=== PATIENT | male | born 1950 | race Two or more races ===

== ENCOUNTER → 2024-04-26 | Outpatient (CLI) | payer OTHER, SELFPAY ==
--- NOTE | 2024-04-26 09:24 | EKG_ITS ---
[facility] Test Date: 2024-04-26 Pat Name: IRMA QUEVEDO Department: Room: - Gender: Male Dietary Aid: RT DOMITILANT : 1950 Requested By: Rocky Kingston (PCP) Order Number: [id number] Reading MD: Rocky Kingston (PCP) Measurements Intervals [place] Rate: 72 P: 57 WV: 137 QRS: 33 QRSD: 72 T: 50 QT: 383 QTc: 422 Interpretive Statements SINUS RHYTHM No previous ECG available for comparison /store/S0/[id number]
[2024-04-26 09:39] LABS: Basophils % (Auto) 1 % (0-2.5); Eosinophils # (Auto) 0.1 Thou/mm3 (0.0-0.5); Eosinophils % (Auto) 2 % (0-10); Hematocrit 46.7 % (41.0-53.0); Hemoglobin 15.4 g/dL (13.5-16.0); Immature Granulocytes % (Auto) 1 % (0-0); Immature Granulocytes Auto 0.06 Thou/mm3 (0.00-0.00); Lymphocytes # (Auto) 1.9 Thou/mm3 (1.0-4.8); Lymphocytes % (Auto) 32 % (10-50); Mean Corpuscular Hemoglobin 29.3 pg (25.0-35.0); Mean Corpuscular Volume 89 fL (80-100); Monocytes # (Auto) 0.5 Thou/mm3 (0.0-0.8); Monocytes % (Auto) 8 % (0-12); Neutrophils # (Auto) 3.4 Thou/mm3 (1.8-7.7); Neutrophils % (Auto) 57 % (37-80); Nucleated Red Blood Cell % 0 /100 WBC (0); Platelet Count 173 Thou/mm3 (140-440); RDW Standard Deviation 47.6 fL (35.1-43.9); Red Blood Count 5.25 Miln/mm3 (4.50-5.90)
[2024-04-26 10:00] LABS: Alanine Aminotransferase 28 U/L (10-49); Alkaline Phosphatase 66 U/L (46-116); Anion Gap 10 (7-16); Aspartate Amino Transferase 19 U/L (0-34); Calcium 9.5 mg/dL (8.3-10.6); Calcium (Corrected) 9.5 mg/dL (8.5-10.1); Carbon Dioxide 27.2 mMol/L (20.0-31.0); Chloride 104 mMol/L (98-107); Creatinine (Component) 0.6 mg/dL (0.6-1.3); Glucose 160 mg/dL (74-106); Potassium 3.8 mMol/L (3.4-5.1); Sodium 141 mMol/L (136-145); eGFR > 60 See Note
[2024-04-26 10:21] LABS: Albumin/Globulin Ratio 1.7 (1.2-2.2); BUN/Creatinine Ratio 30 Ratio (12-20); Blood Urea Nitrogen 18 mg/dL (9-23); Globulin 2.3 gm/dL (2.3-3.5); Osmolality,Calculated 286 (275-295); Total Protein 6.3 gm/dL (5.7-8.2)
[2024-04-26 14:47] LABS: Glucose Estimated Average 243 mg/dL (80-131); Hemoglobin A1C 10.1 % Hgb (4.8-6.0)
[2024-04-26 15:03] LABS: Prostate Specific Antigen 2.81 ng/mL (0-4.00)
[2024-04-26 15:04] LABS: Cardiac Risk Estimate 3.3 RATIO (4.0-6.7); Cholesterol 167 mg/dL (132-200); HDL Cholesterol 50 mg/dL (40-60); LDL Cholesterol,Calculated 87 mg/dL (0-130); Triglycerides 148 mg/dL (30-150)
[2024-04-26 15:06] LABS: Vitamin D 25 Hydroxy Total 26.7 ng/mL (7.3-40.2)
== END | disposition home or self-care (01) ==
PROVIDERS: PCP Family Medicine; Referring Provider Family Medicine; Visit Provider Family Medicine
DX: Z00.00 Encounter for general adult medical examination without abnormal findings (principal); Z13.0 Encounter for screening for diseases of the blood and blood-forming organs and certain disorders involving the immune mechanism; Z13.29 Encounter for screening for other suspected endocrine disorder; Z13.21 Encounter for screening for nutritional disorder; Z13.220 Encounter for screening for lipoid disorders; Z12.11 Encounter for screening for malignant neoplasm of colon; R10.9 Unspecified abdominal pain; R14.3 Flatulence; R07.9 Chest pain, unspecified; R00.2 Palpitations
CPT/HCPCS: 36415; 80053; 80061; 81001; 82043; 82306; 82570; 83036; 84153; 84443; 85025; 93005

== ENCOUNTER → 2024-06-15 | Outpatient (CLI) | payer OTHER, SELFPAY | END | disposition home or self-care (01) | LOC: COPL 11:52 | PROVIDERS: PCP Family Medicine; Referring Provider Family Medicine; Visit Provider Family Medicine | DX: R10.9 Unspecified abdominal pain (principal) | CPT/HCPCS: 87338 ==

== ENCOUNTER 2024-11-04 16:37 | Emergency (ER) | payer OTHER, SELFPAY ==
[2024-11-04 16:40] VITALS: BMI 22.8
[2024-11-04 16:55] VITALS: BP 100/46; PULSE 84; RESP 17; TEMP 37.1; O2SAT 98
--- NOTE | 2024-11-04 17:01 | XR_ITS ---
Examination: PA lateral chest 2 views Technique: Upright PA lateral chest 2 views Date and time: November 04, 2024, 1723 hrs. Comparison: April 03, 2020 Indications: Onset chest pain today. Findings: Normal heart size Mild vascular congestion. No lobar pneumonia or pulmonary edema Impression: Mild vascular congestion
--- NOTE | 2024-11-04 17:01 | EKG_ITS ---
[facility] Test Date: 2024-11-04 Pat Name: IRMA QUEVEDO Department: Room: - Gender: Male [employer] Farm[employer]: : 1950 Requested By: Tere Patiño Order Number: [id number] Reading MD: Tere Patiño Measurements Intervals [place] Rate: 75 P: 56 OR: 134 QRS: 43 QRSD: 82 T: 61 QT: 378 QTc: 424 Interpretive Statements SINUS RHYTHM Compared to ECG 04/26/2024 09:27:43 No significant changes /store/S0/[id number].pdf
--- NOTE | 2024-11-04 17:02 | PD.EDRME ---
Rapid Medical Screening Exam RME Arrival date/time: 11/04/24 16:37 Chief Complaint: Urogenital-Male Time Seen by Provider: 11/04/24 16:58 Vital signs: Vital Signs Temperature 98.7 F 11/04/24 16:55 Pulse Rate 84 11/04/24 16:55 Respiratory Rate 17 11/04/24 16:55 Blood Pressure 100/46 L 11/04/24 16:55 Pulse Oximetry (%) 98 11/04/24 16:55 Oxygen Delivery Method Room Air 11/04/24 16:55 Vital signs reviewed by provider: Yes RME Narrative: 74-year-old male with past medical history of diabetes and prostate problems (on prostate medications) presents to the Emergency Department with very yellow urine today. He reports chest pain radiating to the back 3 days ago for which he went to a clinic, but no interventions were performed and he has not had pain since then. Today he noticed his urine is really yellow . He also has suprapubic discomfort. He denies hematuria, diarrhea, or other acute symptoms. No known allergies. Orders made and another provider to follow up care.
[2024-11-04 17:25] LABS: Collection Type, Urine Clean Catch
[2024-11-04 17:27] LABS: Basophils # (Auto) 0.0 Thou/mm3 (0.0-0.2); Basophils % (Auto) 0 % (0-2.5); Eosinophils # (Auto) 0.0 Thou/mm3 (0.0-0.5); Eosinophils % (Auto) 0 % (0-10); Hematocrit 43.3 % (41.0-53.0); Hemoglobin 14.2 g/dL (13.5-16.0); Immature Granulocytes Auto 0.02 Thou/mm3 (0.00-0.00); Lymphocytes # (Auto) 0.6 Thou/mm3 (1.0-4.8); Lymphocytes % (Auto) 10 % (10-50); Mean Corpuscular HGB Conc 32.8 g/dl (31.0-37.0); Mean Corpuscular Hemoglobin 28.2 pg (25.0-35.0); Mean Corpuscular Volume 86 fL (80-100); Monocytes # (Auto) 0.5 Thou/mm3 (0.0-0.8); Monocytes % (Auto) 9 % (0-12); Neutrophils # (Auto) 4.9 Thou/mm3 (1.8-7.7); Neutrophils % (Auto) 81 % (37-80); Nucleated Red Blood Cell # 0.00 Thou/mm3 (0.00-0.00); Nucleated Red Blood Cell % 0 /100 WBC (0); Platelet Count 153 Thou/mm3 (140-440); RDW Standard Deviation 49.6 fL (35.1-43.9); Red Blood Count 5.03 Miln/mm3 (4.50-5.90); White Blood Count 6.1 Thou/mm3 (3.8-10.6)
[2024-11-04 17:48] LABS: Bilirubin,Urine 3+ (Negative); Blood,Urine Trace (Negative); Clarity,Urine Clear (Clear/Hazy); Color,Urine Drk-Yellow (Lt Yel-Yel); Culture Indicated,Urine Not Indicated; Glucose, Urine 3+ (Negative); Ketones,Urine 1+ (Negative); Leukocyte Esterase,Urine Negative (Negative); Nitrite,Urine Negative (Negative); PH,Urine 6.0 (5.0-7.0); Protein,Urine 1+ (Neg - Trace); RBC,Urine 5 /hpf (0-3); Specific Gravity,Urine 1.035 (1.001-1.035); Squamous Epithelial Cell,Urine < 1 /hpf (0-5); Urobilinogen,Urine 4.0 mg/dL (0.0-1.0); WBC,Urine 4 /hpf (0-5)
[2024-11-04 17:51] LABS: Alanine Aminotransferase 306 U/L (10-49); Albumin, Serum 4.3 gm/dL (3.4-4.8); Albumin/Globulin Ratio 1.6 (1.2-2.2); Alkaline Phosphatase 230 U/L (46-116); Anion Gap 9 (7-16); Aspartate Amino Transferase 253 U/L (0-34); BUN/Creatinine Ratio 27 Ratio (12-20); Bilirubin,Total 5.0 mg/dL (0.3-1.2); Blood Urea Nitrogen 16 mg/dL (9-23); Calcium 9.7 mg/dL (8.3-10.6); Calcium (Corrected) 9.7 mg/dL (8.5-10.1); Carbon Dioxide 24.0 mMol/L (20.0-31.0); Chloride 106 mMol/L (98-107); Creatinine (Component) 0.6 mg/dL (0.6-1.3); Estimated Creatinine Clearance 107.1 mL/min (>60); Globulin 2.7 gm/dL (2.3-3.5); Glucose 178 mg/dL (74-106); Osmolality,Calculated 282 (275-295); Potassium 3.8 mMol/L (3.4-5.1); Sodium 139 mMol/L (136-145); Total Protein 7.0 gm/dL (5.7-8.2); Troponin I < 0.002 ng/mL (0.0-0.045); eGFR > 60 See Note
--- NOTE | 2024-11-04 18:16 | XR_ITS ---
Examination: Abdomen sonogram, Limited Date and time of exam: November 04, 2024, 2049 hrs. Indications: Abdominal pain beginning 3 days ago Technique: Grayscale sonographic images abdomen Findings: 12 mm sludge ball Gallbladder wall is thickened 0.7 cm Common bile duct 0.3 cm Pancreatic head 3.7 cm Liver 17.5 cm smooth contour Normal hepatopedal portal venous oh Patent IVC Impression: 12 mm sludge ball Acute acalculous cholecystitis, consider HIDA scan or MRCP follow-up
--- NOTE | 2024-11-04 18:20 | EDNOTE_ITS ---
ED Abdominal Pain RME/HPI General Chief Complaint: Urogenital-Male Stated complaint: I HAVE A URINE INFECTION Time seen by provider: 11/04/24 16:58 Arrival date/time: 11/04/24 16:37 RME / HPI RME / HPI narrative: 74-year-old male with past medical history of diabetes and prostate problems (on prostate medications) presents to the Emergency Department with very yellow urine today. He reports chest pain radiating to the back 3 days ago for which he went to a clinic, but no interventions were performed and he has not had pain since then. Today he noticed his urine is really yellow . He also has suprapubic discomfort. He denies hematuria, diarrhea, or other acute symptoms. No known allergies. Orders made and another provider to follow up care. 74-year-old male with past medical history of diabetes mellitus and BPH who presented to [facility] emergency department with a chief complaint of mild anterior chest pain, back pain and yellow urine. Patient reported that his symptoms started 3 to 5 days ago and they have not improved with [id number] medication reports taking ibuprofen up to 4 times a day. He otherwise denies any recent weight loss, decreased appetite, fevers chills myalgias palpitations or headache. Related Data Allergies Allergy/AdvReac Type Severity Reaction Status Date / Time No Known Allergies Allergy Verified 11/04/24 16:45 Review of Systems Review of Systems Systems Reviewed: All systems reviewed, normal except as documented Past Medical History Social History SMOKING STATUS: Never smoker SUBSTANCE USE: does not use ALCOHOL: Never HOUSING: House LIVES WITH: Family Travel History EBOLA RISK: No ED Exam Narrative Physical exam: Physical Exam General: Awake and in no acute distress. Conversational and non-toxic appearing. HEENT: Normocephalic, atraumatic, mucous membranes moist. Scleral icterus noted. Heart: Regular rate and rhythm, no murmurs. Lungs: Clear to auscultation with no wheezing or crackles. Abdomen: Soft, nondistended, nontender, positive bowel sounds. ?No guarding or rebound tenderness. Neurologic: Alert and oriented x3, no gross neurological deficit, and patient able to move all 4 extremities. Extremities: No edema. No asterixis. Skin: No rash or ecchymoses. Jaundiced yellow skin. Course Quality Measures none Orders Category Date Time Status CT Screening NOW Care 11/04/24 18:33 Active EKG (ED ONLY) *Do not use* NOW Care 11/04/24 17:01 Completed MRI Screening NOW Care 11/04/24 21:28 Active NPO after Midnight ONCE Care 11/04/24 21:27 Active Diet NPO after Midnight Diet 11/05/24 00:01 Active Diet Regular Diet 11/04/[address] abdomen pelvis w con Stat Exams 11/04/24 18:33 Completed CXR2 [XR chest 2V] Stat Exams 11/04/24 17:01 Completed EKG (ED Only) Stat Exams 11/04/24 17:01 Draft MR MRCP Stat Exams 11/05/24 Ordered US liver Stat Exams 11/04/24 18:16 Completed Acetaminophen Stat Lab 11/04/24 17:11 Completed Alcohol, Blood Medical Stat Lab 11/04/24 17:11 Completed Bilirubin,Direct AM DRAW Lab 11/05/24 04:43 Completed Bilirubin,Direct Stat Lab 11/04/24 17:11 Completed Blood Culture (Lab) Stat Lab 11/04/24 21:25 Received CBC AM DRAW Lab 11/05/24 04:43 Completed CBC Stat Lab 11/04/24 17:11 Completed CMP [Comprehensive Metabolic Panel] AM DRAW Lab 11/05/24 04:43 Completed CMP [Comprehensive Metabolic Panel] Stat Lab 11/04/24 17:11 Completed Drug Screen,Urine Stat Lab 11/04/24 17:21 Completed Ferritin Stat Lab 11/04/24 17:11 Completed Hepatitis Acute Panel Stat Lab 11/04/24 17:11 Results INR [Prothrombin Time with INR] Stat Lab 11/04/24 17:11 Completed Iron Panel Stat Lab 11/04/24 17:11 Completed Magnesium AM DRAW Lab 11/05/24 04:43 Completed PTT [Partial Thromboplastin Time] Stat Lab 11/04/24 17:11 Completed Troponin I Stat Lab 11/04/24 17:11 Completed UA, C/S IF [Urinalysis, C/S if Indicated] Stat Lab 11/04/24 17:21 Completed Piper/Tazo Inj [Zosyn Inj] 4.5 gm Med 11/04/24 21:33 Pending Sodium Chloride 0.9% (Pop) [NS 0.9% mini bag] 100 ml IV Q6HR Piper/Tazo Inj [Zosyn Inj] 4.5 gm Med 11/04/24 21:45 Discontinued Sodium Chloride 0.9% (Pop) [NS 0.9% mini bag] 100 ml IV X1 Late Tray Request Routine Oth 11/04/24 21:26 Active Vital Signs Vital signs: Vital Signs Temperature 98.7 F 11/04/24 16:55 Pulse Rate 84 11/04/24 16:55 Respiratory Rate 17 11/04/24 16:55 Blood Pressure 100/46 L 11/04/24 16:55 Pulse Oximetry (%) 98 11/04/24 16:55 Oxygen Delivery Method Room Air 11/04/24 16:55 Abdominal Pain MDM MDM Narrative MDM Narrative:: #Hyperbilirubinemia #Transaminitis #Gallbladder sludge 74-year-old male with past medical history of diabetes and BPH scented to ED for back pain and chest pain and yellowing of urine. Workup: EKG shows sinus rhythm Rate 75, QTc 424 CBC: WBC 6.1, hemoglobin 14.0, platelet 153 Coags: PT 10.9 INR 1.0 APTT 24.7 Chemistry: Sodium 139 potassium 3.8 chloride 106 bicarb 24.0 anion gap 9 BUN 16 creatinine 0.6, GFR greater than 60 glucose 178 osmolality 282 corrected calcium 9.7 iron 53 TIBC 325 iron saturation 16, iron sat iron binding 272 ferritin 284 total bilirubin 5.0, direct bilirubin 3.7, AST 253 ALT 306 alk phos 230 troponin less than 0.002, total protein 7, albumin 4.3, globulin 2.7 Urine analysis: Urine color dark yellow, pH 6.0, specific gravity 1.035, protein 1+, glucose 3+, ketones 1+, trace blood, nitrite negative, bilirubin 3+, urobilinogen 4.0, leukocyte esterase negative, RBC 5, WBC 4, squamous epithelial cell less than 1, no bacteria Urine drug screen negative, Tylenol level 3.4, it blood alcohol level negative, Hepatitis panel shows hep A IgM antibody negative, hep Bs antigen nonreactive, hep B core IgM antibody nonreactive, hep C antibody pending Liver ultrasound obtained shows 12 mm sludge ball, acute acalculous cholecystitis, CT abdomen pelvis shows gallbladder wall thickened, no renal or ureteral calculi and no hydronephrosis, normal appendix Marked prostatomegaly thickening of urinary bladder wall Patient will be started on Zosyn every 6 hours prophylactically, labs ordered for a.m. Patient will need MRCP, MRCP ordered. MRCP will be available in a.m. Patient will be signed off to a.m. ED physician Dr. Mcdonald Case discussed with Attending Physician Dr. Cherie August MD Internal Medicine PGY-2 Disclaimer: This note was dictated by speech recognition. Minor errors in document processing specialist may be present due to voice recognition software. Patient data External records reviewed:: [facility] previous records Clinical information provided by:: patient Social determinants that could affect healthcare access:: none Patient has the following chronic illnesses:: As above How is presenting disease/condition affected by chronic disease/condition?: uneffected by Evaluation data The following diagnostics were reviewed and interpreted by me:: lab results, radiology exam(s) and EKG tracing(s) Lab and/or radiology exams considered but not ordered:: None Interpretation Summary: EKG shows sinus rhythm Rate 75, QTc 424 CBC: WBC 6.1, hemoglobin 14.0, platelet 153 Coags: PT 10.9 INR 1.0 APTT 24.7 Chemistry: Sodium 139 potassium 3.8 chloride 106 bicarb 24.0 anion gap 9 BUN 16 creatinine 0.6, GFR greater than 60 glucose 178 osmolality 282 corrected calcium 9.7 iron 53 TIBC 325 iron saturation 16, iron sat iron binding 272 ferritin 284 total bilirubin 5.0, direct bilirubin 3.7, AST 253 ALT 306 alk phos 230 troponin less than 0.002, total protein 7, albumin 4.3, globulin 2.7 Urine analysis: Urine color dark yellow, pH 6.0, specific gravity 1.035, protein 1+, glucose 3+, ketones 1+, trace blood, nitrite negative, bilirubin 3+, urobilinogen 4.0, leukocyte esterase negative, RBC 5, WBC 4, squamous epithelial cell less than 1, no bacteria Urine drug screen negative, Tylenol level 3.4, it blood alcohol level negative, Hepatitis panel shows hep A IgM antibody negative, hep Bs antigen nonreactive, hep B core IgM antibody nonreactive, hep C antibody pending Liver ultrasound obtained shows 12 mm sludge ball, acute acalculous cholecystitis, CT abdomen pelvis shows gallbladder wall thickened, no renal or ureteral calculi and no hydronephrosis, normal appendix Marked prostatomegaly thickening of urinary bladder Medications / Prescriptions Medications or Prescriptions considered but not ordered:: None Medication administrations:: Medication Administration History Piperacillin Sod/Tazobactam (Sod 4.5 gm/ Sodium Chloride) 100 mls @ 200 mls/hr IV Q6HR GUILLERMINA; Protocol Stop: 11/11/24 21:32 Discontinued Medications Piperacillin Sod/Tazobactam (Sod 4.5 gm/ Sodium Chloride) 100 mls @ 200 mls/hr IV X1 ONE; Protocol Stop: 11/04/24 22:14 Last Infusion: 11/04/24 22:40 Dose: Infused Documented By: Admin: 11/04/24 21:43 Dose: 200 mls/hr Documented By: YOKO As Above Consultations Consultation(s) initiated? (list below): No Diagnosis Differential diagnosis abdominal pain: abdominal pain, constipation, small bowel obstruction and other Most likely diagnosis given after review of the tests above:: Biliary etiology Admission Indicated Admission indicated?: not indicated Admission Request Was there a request for admission?: No Disposition Plan Disposition Plan: other (specify) (Signed off to Dr Mcdonald) Discharge Plan Prescriptions/Referrals Referrals: Thee (PCP)Rocky MD [Primary Care Provider, [facility]] - In 1 week Problem List Clinical Impression: Hyperbilirubinemia Patient/Caregiver Discharge Instructions Additional Instructions: Discharge Instructions from Dr. August: 1. After evaluation, your symptoms are due to gallstone(s).? You need gallbladder to help digest fatty foods. 2. So to prevent future attacks, avoid all fatty and oily and greasy and buttery and dairy foods.? This usually means take out and fast food restaurants. 3. Zofran for nausea/vomiting.? Tylenol with codeine for severe pain.? Clear liquid diet for 24 hours then advance diet slowly as tolerated. 4. See a private doctor on 11/05/2024 for recheck and further care. Ask to review all test results and official radiology reports, to make sure you receive all necessary follow-ups and monitoring. Ask for help seeing a general surgeon to discuss elective surgery, to prevent these painful attacks. 5. Seek immediate medical care with intolerable pain, fever, or with any concerns. Instrucciones de gilma del Dr. August: 1. Despu?s de la evaluaci?n, choco s?ntomas se deben a c?lculos biliares. Necesita la ves?cula biliar para digerir los alimentos grasos. 2. Para prevenir futuros ataques, evite todos los alimentos grasosos, aceitosos, grasosos, con mantequilla y l?cteos. [place] generalmente implica comida para llevar y restaurantes de comida r?pida. 3. Zofran para n?useas y v?mitos. Tylenol con code?na para el dolor intenso. Dieta l?quida jan 24 horas y luego aumente la dieta gradualmente seg?n la tolerancia. 4. Consulte con un m?dico privado el 05/11/2024 para david revisi?n y atenci?n adicional. Solicite la revisi?n de todos los resultados de las pruebas y los informes radiol?gicos oficiales para asegurarse de recibir todos los seguimientos y la monitorizaci?n necesarios. Solicite ayuda con un cirujano general para hablar sobre david cirug?a electiva y prevenir estos dolorosos ataques. 5. Busque atenci?n m?dica inmediata si presenta dolor insoportable, fiebre o cualquier inquietud. Print Language: Portuguese
--- NOTE | 2024-11-04 18:33 | XR_ITS ---
Examination: CT abdomen with intravenous contrast CT pelvis with intravenous contrast 2-D coronal reconstructions 2-D sagittal reconstructions Date and time of exam:November 04, 2024, 2009 hrs. Indications: Lower abdominal pain with dark-colored urine today, hyperbilirubinemia elevated transaminase on laboratory examination today. CTDI: vol (mGy) 6.11 DLP: (mGycm) 371 Technique: Multiple axial sections of the abdomen and pelvis have been obtained. 64 slice high-resolution scanner used. 3 mm axial sections have been obtained, post intravenous injection 60 cc [id number] 2-D sagittal, coronal reconstructions obtained. Low dose protocols were performed. One or more of the following dose reduction techniques were used; automated exposure control, adjustment of the mA and/or KV according to patient size, use of iterative reconstruction technique. Findings: No focal liver or splenic lesion Gallbladder wall appears thickened No extra hepatic biliary tract dilatation no pancreatic mass No renal or ureteral calculi, no hydronephrosis Aorta normal size Normal appendix No bowel obstruction Marked prostatomegaly transverse dimension 6.7 cm with thickening of urinary bladder wall Fat-containing inguinal hernias Prominent osteopenia Impression: Gallbladder wall appears thickened, recommend hepatobiliary sonography follow-up No renal or ureteral calculi, no hydronephrosis Normal appendix Marked prostatomegaly, thickening of urinary bladder wall, consider urinary tract outflow obstruction secondary to the prostatomegaly, cystitis, clinical correlation advised
[2024-11-04 18:45] LABS: INR 1.0 (0.9-1.3); Partial Thromboplastin Time 24.7 Seconds (22.0-36.0); Prothrombin Time 10.9 Seconds (9.0-12.2)
[2024-11-04 18:50] LABS: Alcohol, Blood Medical < 3.0 mg/dL (0-10.0); Bilirubin,Direct 3.7 mg/dL (0.0-0.3)
[2024-11-04 19:03] LABS: Acetaminophen 3.4 mcg/mL (10.0-20.0)
[2024-11-04 19:41] LABS: Amphetamine/Methamp Scrn,U Negative (Negative); Barbiturate Screen,Urine Negative (Negative); Benzodiazepines Screen,Urine Negative (Negative); Benzoylecgonine Screen, Ur Negative (Negative); Fentanyl Screen,Urine Negative (Negative); Opiate Screen,Urine Negative (Negative); THC Screen,Urine Negative (Negative)
[2024-11-04 19:44] VITALS: BP 145/76; PULSE 63; RESP 18; TEMP 36.5; O2SAT 98
[2024-11-04 20:32] LABS: Ferritin 284 ng/mL (10.5-307.3); Iron 53 mcg/dL (65-175); Percent Iron Saturation 16 % (20-55); Total Iron Binding Capacity 325 mcg/dL (250-425); Unsaturated Iron Binding 272 (225-295)
--- NOTE | 2024-11-04 20:48 | PC.NURSE ---
Pt taken to ultrasound via wheelchair
[2024-11-04 21:31] LABS: Hepatitis A Antibody IgM Non Reactive (Non React); Hepatitis B Core Antibody IgM Non Reactive (Non React); Hepatitis B Surface Antigen Non Reactive (Non React)
[2024-11-04] MEDS: PIPER/TAZO INJ 4.5 GM in SODIUM CHLORIDE 0.9% (POP) 100 ML IV (21:43)
[2024-11-05] VITALS: BP 137/70; PULSE 54; RESP 19; TEMP 36.7; O2SAT 98
--- NOTE | 2024-11-05 | XR_ITS ---
MRI abdomen, without contrast. MRCP Date and time of exam: November 05, 2024 0856 hours INDICATIONS: Yellow urine today, epigastric pain radiating to the back beginning 3 days ago, 12 mm sludge ball, gallbladder wall is thickened 0.7 cm Hepatobiliary sonography 11/04/2024 2051 hours Technique: Multiple axial and coronal images of the abdomen have been obtained with the Siemens 1.5T MRI scanner. Images obtained included T1 weighted transverse images, T2-weighted transverse images, T2-weighted transverse images fat-suppressed, T2 weighted haste fat suppressed transverse images, T1 weighted images, in and out of phase images, T2-weighted coronal images, breath hold, T2 weighted haze coronal images as well as T2 weighted coronal thick slab images, MRCP. Findings: No intrahepatic biliary tract dilatation Gallbladder sludge versus stones No convincing gallbladder wall thickening Normal common hepatic common bile duct no stones No pancreatic mass Pancreatic duct is not dilated Spleen is not enlarged No hydronephrosis No ascites Aorta normal size IMPRESSION: Gallbladder sludge and possible small gallstones No findings of cholecystitis Normal common hepatic common bile duct.
[2024-11-05 03:57] VITALS: BP 125/94; PULSE 61; RESP 16; TEMP 36.4; O2SAT 97
[2024-11-05 05:33] VITALS: BP 113/58; PULSE 67; RESP 17; TEMP 36.8; O2SAT 98
[2024-11-05 05:36] LABS: Basophils # (Auto) 0.0 Thou/mm3 (0.0-0.2); Basophils % (Auto) 0 % (0-2.5); Eosinophils # (Auto) 0.0 Thou/mm3 (0.0-0.5); Eosinophils % (Auto) 0 % (0-10); Hematocrit 38.5 % (41.0-53.0); Hemoglobin 12.8 g/dL (13.5-16.0); Immature Granulocytes Auto 0.05 Thou/mm3 (0.00-0.00); Lymphocytes # (Auto) 1.0 Thou/mm3 (1.0-4.8); Lymphocytes % (Auto) 13 % (10-50); Mean Corpuscular HGB Conc 33.2 g/dl (31.0-37.0); Mean Corpuscular Hemoglobin 28.2 pg (25.0-35.0); Mean Corpuscular Volume 85 fL (80-100); Monocytes # (Auto) 0.7 Thou/mm3 (0.0-0.8); Monocytes % (Auto) 10 % (0-12); Neutrophils # (Auto) 5.4 Thou/mm3 (1.8-7.7); Neutrophils % (Auto) 76 % (37-80); Nucleated Red Blood Cell # 0.00 Thou/mm3 (0.00-0.00); Nucleated Red Blood Cell % 0 /100 WBC (0); Platelet Count 149 Thou/mm3 (140-440); RDW Standard Deviation 49.3 fL (35.1-43.9); Red Blood Count 4.54 Miln/mm3 (4.50-5.90); White Blood Count 7.1 Thou/mm3 (3.8-10.6)
[2024-11-05 06:08] LABS: Alanine Aminotransferase 300 U/L (10-49); Albumin, Serum 3.7 gm/dL (3.4-4.8); Albumin/Globulin Ratio 1.5 (1.2-2.2); Alkaline Phosphatase 227 U/L (46-116); Anion Gap 8 (7-16); Aspartate Amino Transferase 277 U/L (0-34); BUN/Creatinine Ratio 23 Ratio (12-20); Bilirubin,Direct 3.2 mg/dL (0.0-0.3); Bilirubin,Total 4.3 mg/dL (0.3-1.2); Blood Urea Nitrogen 14 mg/dL (9-23); Calcium 8.9 mg/dL (8.3-10.6); Calcium (Corrected) 9.1 mg/dL (8.5-10.1); Carbon Dioxide 24.3 mMol/L (20.0-31.0); Chloride 108 mMol/L (98-107); Creatinine (Component) 0.6 mg/dL (0.6-1.3); Estimated Creatinine Clearance 107.1 mL/min (>60); Globulin 2.4 gm/dL (2.3-3.5); Glucose 144 mg/dL (74-106); Magnesium 1.8 mg/dL (1.6-2.6); Osmolality,Calculated 282 (275-295); Potassium 3.9 mMol/L (3.4-5.1); Sodium 140 mMol/L (136-145); Total Protein 6.1 gm/dL (5.7-8.2); eGFR > 60 See Note
--- NOTE | 2024-11-05 06:59 | EDNOTE_ITS ---
Emergency Room Addendum <Tere Mcdonald MD - Last Filed: 11/29/24 23:49> Addendum Narrative: Patient is a 74-year-old male is in the emergency department with concerns for abnormal colored urine. Patient was evaluated overnight. Had labs CT abdomen pelvis as well as liver ultrasound EKG and chest x-ray performed. Labs with evidence of hemoglobin 12.8. Patient chloride 108. No other significant electrolyte abnormality. T. bili 5.0 D bili 3.2. AST 277 ALT 300, alk phos 227. Troponin not elevated. Tylenol level not elevated. Drug screen negative. Hepatitis panel negative for hepatitis A and B. Right upper quadrant ultrasound with evidence of 12 mm sludge ball, acute acalculous cholecystitis. CT abdomen pelvis also with evidence of prostatic megaly, bladder wall thickening. Urinalysis without evidence of infection. EKG sinus rhythm, normal intervals, nonspecific T wave changes, no cardiac alert. Troponin not elevated. Patient received antibiotics last night. Patient is pending MRCP. 12:23p MRCP with gallbladder sludge and possible gallstones. No findings for cholecystitis. Patient with a normal common bile duct. Will consult surgery and hospitalist service. 12:25p left HIPAA compliant message for on-call surgeon Dr. Goel. 12:30p discussed case with Dr. Goel, will evaluate the patient. 12:50 I spoke with hospitalist team A regarding admission, will come evaluate the patient. 13:[address] Goel evaluated the patient and spoke extensively with the patient. Surgery was offered. Dr. Goel reports the patient at this time does not have cholecystitis. The patient at this time does not want to stay for surgery and will follow up with Dr. Goel in his office this upcoming Tuesday to start process for cholecystectomy. Dr. Goel feels comfortable sending the patient home with plan for elective cholecystectomy. I spoke with the patient in [place]. He is aware of plan and he understands. Discussed return precautions. Due to a high probability of clinically significant, life threatening deterioration, the patient required my highest level of preparedness to intervene emergently and I personally spent this critical care time directly and personally managing the patient. This critical care time included obtaining a history; examining the patient; pulse oximetry; ordering and review of studies; arranging urgent treatment with development of a management plan; evaluation of patient's response to treatment; frequent reassessment; and, discussions with other providers. This critical care time was performed to assess and manage the high probability of imminent, life-threatening deterioration that could result in multi-organ failure. It was exclusive of separately billable procedures and treating other patients and teaching time. Please see MDM section and the rest of the note for further information on patient assessment and treatment. <Maria Guadalupe Munoz - Last Filed: 11/05/24 13:51> Addendum Narrative: Patient is a 74-year-old male is in the emergency department with concerns for abnormal colored urine. Patient was evaluated overnight. Had labs CT abdomen pelvis as well as liver ultrasound EKG and chest x-ray performed. Labs with evidence of hemoglobin 12.8. Patient chloride 108. No other significant electrolyte abnormality. T. bili 5.0 D bili 3.2. AST 277 ALT 300, alk phos 227. Troponin not elevated. Tylenol level not elevated. Drug screen negative. Hepatitis panel negative for hepatitis A and B. Right upper quadrant ultrasound with evidence of 12 mm sludge ball, acute acalculous cholecystitis. CT abdomen pelvis also with evidence of prostatic megaly, bladder wall thickening. Urinalysis without evidence of infection. EKG sinus rhythm, normal intervals, nonspecific T wave changes, no cardiac alert. Troponin not elevated. Patient received antibiotics last night. Patient is pending MRCP. 12:23p MRCP with gallbladder sludge and possible gallstones. No findings for cholecystitis. Patient with a normal common bile duct. Will consult surgery and hospitalist service. 12:25p left HIPAA compliant message for on-call surgeon Dr. Goel. 12:30p discussed case with Dr. Goel, will evaluate the patient. 12:50 I spoke with hospitalist team A regarding admission, will come evaluate the patient. 13:[address] Goel evaluated the patient and spoke extensively with the donald robles. Surgery was offered. Dr. Goel reports the patient at this time does not have cholecystitis. The patient at this time does not want to stay for surgery and will follow up with Dr. Goel in his office this upcoming Tuesday to start process for cholecystectomy. Dr. Goel feels comfortable sending the patient home with plan for elective cholecystectomy. I spoke with the patient in [place]. He is aware of plan and he understands. Discussed return precautions.
[2024-11-05 07:25] VITALS: BP 143/100; PULSE 61; RESP 19; TEMP 36.7; O2SAT 97
[2024-11-05] MEDS: SODIUM CHLORIDE 0.9% IV (08:27)
[2024-11-05] MEDS: CEFOXITIN IV (08:27)
--- NOTE | 2024-11-05 09:02 | PC.NURSE ---
PATIENT TAKEN TO MRI VIA WHEELCHAIR FOR MRCP
[2024-11-05 10:51] VITALS: BP 120/74; PULSE 68; RESP 19; TEMP 36.7; O2SAT 98
--- NOTE | 2024-11-05 13:36 | ESCONSULT_ITS ---
HPI Consult details Consult date: 11/05/24 Reason for consultation narrative: Patient patient was seen in consultation because of hyperbilirubinemia and elevated liver enzymes History of present illness: History of present illness revealed that 1 week ago patient had some pain in the upper abdomen radiating to the back and he was seen by his Dr Kingston. He was advised to go to the emergency room if there is a pain but he did not. Yest erday he came to the emergency room because his urine turned very yellow for the past 2 days. He still did not have much pain fever or chills. His past medical history is essentially unremarkable. Past Medical History Past Medical History NEUROLOGIC: Negative Neurological Disorders CARDIAC: Positive Hypertension; Negative Cardiac Disorders or Congestive Heart Failure RESPIRATORY: Negative Respiratory Disorders, Chronic Obstructive Pulmonary Disease (COPD) or Asthma GASTROINTESTINAL: Negative Gastrointestinal Disorders GENITOURINARY: Positive Benign Prostatic Hyperplasia; Negative Genitourinary Disorders or Renal Disease MUSCULOSKELETAL: Negative Musculoskeletal Disorders ENDOCRINE: Positive Endocrine Disorders and Diabetes Mellitus Type 2; Negative Diabetes Mellitus Type 1 HEMATOLOGIC: Negative Blood Disorders or Sickle Cell Disease OTHER HISTORY: Negative Autoimmune Disease Surgical History SURGICAL: Negative Ear Surgery, Joint Replacement or Mastectomy Social History SMOKING STATUS: Never smoker SUBSTANCE USE: does not use Travel History EBOLA RISK: No Meds Home Medications and Allergies Allergies Allergy/AdvReac Type Severity Reaction Status Date / Time No Known Allergies Allergy Verified 11/04/24 16:45 Exam Vital Signs Temp Pulse Resp BP Pulse Ox O2 Del Method 98.1 F 68 19 120/74 98 Room Air 11/05/24 10:51 11/05/24 10:51 11/05/24 10:51 11/05/24 10:51 11/05/24 10:51 11/05/24 10:51 Narrative Exam Physical examination revealed a well-built well-nourished male who speaks only Serbian Constitutional Constitutional: no acute distress Routine Abdominal Exam Comments: Abdomen is scaphoid and is not tender anywhere. Right upper quadrant is negative Results Results: Laboratory Laboratory Narrative: Laboratory results show elevated bilirubin and transaminases. CBC is normal Results: Imaging Imaging narrative: Gallbladder showed sludge filling half the gallbladder. The common bile duct is normal on the MRCP showed no stones. Assessment & Plan Additional Assessment Additional comments: Impression: Painless jaundice possibly due to passage of sludge into the common bile duct Plan Plan: I advised the patient to undergo cholecystectomy because that is the source of the jaundice. Patient wants to wait I will arrange for seeing him in a couple of days in my office and arrange for cholecystectomy
--- NOTE | 2024-11-05 15:12 | PC.NURSE ---
RN WALKED INTO ED ROOM 9 TO DISCHARGE PATIENT. PATIENT WAS NO LONGER IN ROOM. PATIENT WALKED OUT
[2024-11-06 15:45] LABS: Hepatitis C Antibody Non Reactive (Non React)
== END 2024-11-05 15:13 | disposition home or self-care (01) ==
PROVIDERS: Emergency Provider Emergency Medicine; PCP Family Medicine
DX: R17 Unspecified jaundice (principal); K83.8 Other specified diseases of biliary tract; R07.89 Other chest pain
CPT/HCPCS: 36415; 71046; 74177; 74181; 76705; 80053; 80074; 80307; 80320; 80329; 81001; 82248; 82728; 83540; 83550; 83735; 84484; 85025; 85610; 85730; 87040; 93005; 96365; 96366; 99284; A4649; J0694; J2543; Q9967; G0480

== ENCOUNTER 2024-11-30 05:40 | Day surgery (SDC) | payer OTHER, SELFPAY ==
[2024-11-29 08:51] VITALS: BMI 21.7
--- NOTE | 2024-11-29 09:10 | EKG_ITS ---
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
[2024-11-29 09:45] LABS: Basophils # (Auto) 0.0 Thou/mm3 (0.0-0.2); Basophils % (Auto) 1 % (0-2.5); Eosinophils # (Auto) 0.0 Thou/mm3 (0.0-0.5); Eosinophils % (Auto) 0 % (0-10); Hematocrit 47.2 % (41.0-53.0); Hemoglobin 15.3 g/dL (13.5-16.0); Immature Granulocytes Auto 0.03 Thou/mm3 (0.00-0.00); Lymphocytes # (Auto) 0.8 Thou/mm3 (1.0-4.8); Lymphocytes % (Auto) 15 % (10-50); Mean Corpuscular HGB Conc 32.4 g/dl (31.0-37.0); Mean Corpuscular Hemoglobin 28.3 pg (25.0-35.0); Mean Corpuscular Volume 87 fL (80-100); Monocytes # (Auto) 0.5 Thou/mm3 (0.0-0.8); Monocytes % (Auto) 9 % (0-12); Neutrophils # (Auto) 4.2 Thou/mm3 (1.8-7.7); Neutrophils % (Auto) 75 % (37-80); Nucleated Red Blood Cell # 0.00 Thou/mm3 (0.00-0.00); Nucleated Red Blood Cell % 0 /100 WBC (0); Platelet Count 204 Thou/mm3 (140-440); RDW Standard Deviation 45.7 fL (35.1-43.9); Red Blood Count 5.41 Miln/mm3 (4.50-5.90); White Blood Count 5.7 Thou/mm3 (3.8-10.6)
[2024-11-29 09:53] LABS: INR 1.0 (0.9-1.3); Partial Thromboplastin Time 25.6 Seconds (22.0-36.0); Prothrombin Time 10.7 Seconds (9.0-12.2)
[2024-11-29 10:02] LABS: Alanine Aminotransferase 112 U/L (10-49); Albumin, Serum 4.5 gm/dL (3.4-4.8); Albumin/Globulin Ratio 1.7 (1.2-2.2); Alkaline Phosphatase 227 U/L (46-116); Anion Gap 9 (7-16); Aspartate Amino Transferase 72 U/L (0-34); BUN/Creatinine Ratio 17 Ratio (12-20); Bilirubin,Total 1.0 mg/dL (0.3-1.2); Blood Urea Nitrogen 12 mg/dL (9-23); Calcium 9.4 mg/dL (8.3-10.6); Calcium (Corrected) 9.4 mg/dL (8.5-10.1); Carbon Dioxide 27.0 mMol/L (20.0-31.0); Chloride 102 mMol/L (98-107); Creatinine (Component) 0.7 mg/dL (0.6-1.3); Estimated Creatinine Clearance 85.1 mL/min (>60); Globulin 2.7 gm/dL (2.3-3.5); Glucose 227 mg/dL (74-106); Osmolality,Calculated 282 (275-295); Potassium 4.6 mMol/L (3.4-5.1); Sodium 138 mMol/L (136-145); Total Protein 7.2 gm/dL (5.7-8.2); eGFR > 60 See Note
[2024-11-30] VITALS (7 sets, daily range): BP systolic 117–152; BP diastolic 68–92; PULSE 64–89; RESP 13–25; TEMP 36.2–36.3; O2SAT 94–99; BMI 21.7
--- NOTE | 2024-11-30 07:20 | SUR.PREOP ---
Patient expressed gratitude for prayer before their procedure.
--- NOTE | 2024-11-30 09:40 | SUR.PHASEI ---
0940: received pt from OR via [facility]. received report from Dr. Garcia and Mary Alice RN. oral airway in place. no s/s of resp. distress or discomfort. no s/s of pain or discomfort dressing to abdomen x4 clean, dry and intact. no bleeding, redness or swelling of the surrounding area of the dressing.
--- NOTE | 2024-11-30 09:55 | SUR.PHASEI ---
0955: able to open eyes and mouth, oral airway removed at this time without any issues.
--- NOTE | 2024-11-30 10:02 | PD.SUROPNT ---
Date of Procedure 11/30/24 Pre Op Diagnosis Symptomatic cholelithiasis with history of common bile duct stone Post Op Diagnosis Same Procedure Laparoscopic cholecystectomy Findings Patient was found to have a very small stones with sludge in the gallbladder which was not inflamed Procedure Description After endotracheal anesthesia was given the patient was placed in supine position and the abdomen was prepped with chloroprep solution and draped in a sterile manner. After time out was performed I injected a few cc of of half percent Marcaine with epinephrine below the umbilicus and I made an incision for about 3 cm in length. The fascia was cleaned and Veress needle was inserted to create a pneumoperitoneum up to 15 mmHg. Then introduced a 12 mm trocar and a 10 mm camera through the fascia and I inspected the intra-abdominal organs as well as the gallbladder and the liver. Another 5 mm trocar was inserted in the epigastric region under direct vision after injecting some local anesthesia. At this time the patient was kept in reverse Trendelenburg position with the left lateral tilt. The third 5 mm trocar was inserted over the mid axillary line under direct vision and a Sang and Elaine grasper was used to hold the fundus of the gallbladder. The retraction was carried out by the visitor information assistant moving the fundus of the gallbladder towards the right shoulder of the patient to create enough traction. I placed a another 5 mm trocar in the midaxillary line just lateral to the rectus muscle under direct vision. I used a fenestrated grasper to retract the neck of the gallbladder laterally towards the patient's right hip. The Calot's triangle was exposed and I achieved the critical view of safety as follows: I dissected out the fatty tissue from the hepatocystic triangle and cleared this area. I also dissected inferior and posterior to the gallbladder to identify the cystic duct and the gallbladder wall. Then superiorly I dissected along the cystic plate up to lower one third third of the gallbladder to lift the gallbladder from the liver. At this time I confirmed that only 2 structures entering the gallbladder were cystic artery and the cystic duct. The common duct was seen distally but no dissection was carried out around the duct. I did not see any need for operative cholangiogram in this patient. The cystic duct was clipped doubly and then divided and cystic artery was similarly dealt with. Then the gallbladder was removed from the liver bed using Harmonic tere to control the small blood vessels as the dissection proceeded. The gallbladder tore on all the stones came out with the bile. The stones were pigmented stones and small in size and they were aspirated. At this time I gave 2 g of Ancef because of the bile contamination. I applied an Endoloop to stop the leak and proceeded with surgery. Then the gallbladder was from the liver bed completely and delivered through the umbilical port using an Endopouch. The liver bed was coagulated with cautery to obtain satisfactory hemostasis. The trocars were pulled out from the abdominal cavity and the fascia at the umbilical incision was closed with interrupted 0 Ethibond. Subcutaneous tissues was closed with 3-0 chromic and injected a few cc of half percent Marcaine with epinephrine and the skin was closed with interrupted 4-0 nylon stitches at all the trocar sites. Dressing was applied with 2 x 2 and Tegaderm. Patient tolerated the procedure well and returned to recovery room in stable condition. Anesthesia GETA Pathology / specimen Other (The gallbladder with no stones) IVF Infused 1,000 Estimated Blood Loss 30 Surgeon Gildardo Bhagat MD Surgical Staff Operation Date: 11/30/24 08:00 Case Staff Anesthesiologist: Amadou Garcia RN First Assistant: Elaina Pinon
--- NOTE | 2024-11-30 10:03 | SUR.PHASEI ---
1003: pt able to drink water and ice without any issues.
--- NOTE | 2024-11-30 10:17 | SUR.PHASEII ---
1017: discharge instructions given to son and pt, all questions were answered.
--- NOTE | 2024-11-30 10:36 | SUR.PHASEII ---
1036: pt discharge to home via wheelchair. pt alert and oriented to name, place and time. no s/s of res. distress or discomfort. denies any pain or discomfort. dressing to abdomen clean, dry and intact. no bleeding, redness or swelling noted from surrounding area of dressing. no bleeding out from dressing.
== END 2024-11-30 10:36 | disposition home or self-care (01) ==
PROVIDERS: PCP Family Medicine; Referring Provider Surgery; Visit Provider Surgery
PROC: 0FT44ZZ Resection of Gallbladder, Percutaneous Endoscopic Approach (ICD-10-PCS; CPT 47562; principal; 2024-11-30 08:00)
DX: K80.10 Calculus of gallbladder with chronic cholecystitis without obstruction (principal); Z01.810 Encounter for preprocedural cardiovascular examination
CPT/HCPCS: 47562; 36415; 80053; 85025; 85610; 85730; 93005; A4217; A4649; J0131; J0690; J2250; J2371; J2704; J3010; J3490; A9270

== ENCOUNTER → 2024-12-21 | Outpatient (CLI) | payer OTHER, SELFPAY ==
[2024-12-21 10:49] LABS: Glucose Estimated Average 200 mg/dL (80-131); Hemoglobin A1C 8.6 % Hgb (4.8-6.0)
== END | disposition home or self-care (01) ==
LOC: COPL 09:38
PROVIDERS: PCP Family Medicine; Referring Provider Family Medicine; Visit Provider Family Medicine
DX: E11.9 Type 2 diabetes mellitus without complications (principal)
CPT/HCPCS: 36415; 83036